=== PATIENT | male | born 2000 | race Caucasian/White ===

== ENCOUNTER 2023-01-22 11:11 | Emergency (ER) | payer OTHER ==
[~2023-01-22] VITALS: Ht 193 cm; Wt 86.8 kg
[2023-01-22] MEDS ORDERED: DIPH50CA29 PO (11:45)
[2023-01-22] MEDS ORDERED: FAMOTIDINE 20MG/2ML VIAL IVP ONE (13:15)
[2023-01-22] MEDS ORDERED: diphenhydrAMINE 50MG/ML VIAL IV ONE (13:15)
[2023-01-22] MEDS ORDERED: NS 1,000 ML IV ONE (13:15)
[2023-01-22] MEDS ORDERED: methylPREDNISolone 125MG 2ML VIAL IV ONE (13:15)
[2023-01-22 13:48] LABS: BASO % 0.3 % (0.0-1.0); EOS # 0.5 10^3/uL (0.0-0.5); HEMATOCRIT 47.2 % (42.0-52.0); HEMOGLOBIN 15.5 g/dl (13.5-17.5); LYMPH # 1.5 10^3/uL (1.5-5.0); LYMPH % 23.1 % (24.0-44.0); MEAN CORPUSCULAR HEMOGLOBIN 28.8 pg (27.0-33.0); MEAN CORPUSCULAR HGB CONC 32.8 g/dl (32.0-36.5); MEAN CORPUSCULAR VOLUME 87.7 fl (80.0-96.0); MONO # 0.7 10^3/uL (0.0-0.8); MONO % 10.5 % (2.0-8.0); NEUTROPHILS # 3.9 10^3/uL (1.5-8.5); NEUTROPHILS % 58.6 % (36.0-66.0); PLATELET COUNT, AUTOMATED 237 10^3/uL (150-450); RED BLOOD COUNT 5.38 10^6/uL (4.30-6.10); WHITE BLOOD COUNT 6.6 10^3/uL (4.0-10.0)
[2023-01-22 14:08] LABS: ERYTHROCYTE SEDIMENTATION RATE 35 mm/hr (0-15)
[2023-01-22 14:16] LABS: BLOOD UREA NITROGEN 19 MG/DL (9-23); CALCIUM LEVEL 9.1 MG/DL (8.5-10.1); CARBON DIOXIDE LEVEL 30 MMOL/L (20-31); CHLORIDE LEVEL 104 MMOL/L (98-107); CREATININE FOR GFR 1.19 MG/DL (0.70-1.30); GLUCOSE, FASTING 81 MG/DL (60-100); POTASSIUM SERUM 4.5 MMOL/L (3.5-5.1); SODIUM LEVEL 139 MMOL/L (136-145)
[2023-01-22] MEDS ORDERED: PRED20TA PO (14:28)
[2023-01-22] MEDS ORDERED: FAMO1TAB11 PO (14:28)
[2023-01-22] MEDS ORDERED: CETI-24 PO (14:30)
[2023-01-22 14:47] VITALS: BP 140/75; TEMP 98.5; O2SAT 98
== END 2023-01-22 15:01 | disposition home or self-care (01) ==
LOC: M ED 11:11
DX: L50.0 Allergic urticaria (principal); T88.7XXA Unspecified adverse effect of drug or medicament, initial encounter; Z88.1 Allergy status to other antibiotic agents; Z79.52 Long term (current) use of systemic steroids; Z79.899 Other long term (current) drug therapy
CPT/HCPCS: 80048; 85025; 85652; 86140; 96361; 96374; 99284; J1200; J2930; S0028

== ENCOUNTER 2024-01-16 01:31 | Emergency (ER) | payer OTHER ==
[~2024-01-16] VITALS: Ht 193 cm; Wt 86.5 kg
[~2024-01-16 01:31] MED LIST: CETI-24 PO; DIPH50CA29 PO; FAMO1TAB11 PO; PRED20TA PO
[2024-01-16 03:01] LABS: RSV AMPLIFICATION NEGATIVE (NEGATIVE)
[2024-01-16] MEDS: MAGIC MOUTHWASH 5ML ORAL SYRINGE SSP ONE (04:52)
[2024-01-16 05:00] VITALS: BP 127/80; TEMP 98; O2SAT 96
[2024-01-16] MEDS ORDERED: CLIN150C17 PO ×2 (05:01→11:19)
[2024-01-16] MEDS ORDERED: MAGICMW SSP ×2 (05:01→11:19)
[2024-01-16] MEDS: CLINDAMYCIN 150MG CAPSULE PO ONE (05:12)
== END 2024-01-16 05:14 | disposition home or self-care (01) ==
LOC: M ED 01:31
DX: J02.0 Streptococcal pharyngitis (principal); K21.9 Gastro-esophageal reflux disease without esophagitis; Z88.1 Allergy status to other antibiotic agents; Z79.52 Long term (current) use of systemic steroids; Z79.2 Long term (current) use of antibiotics; Z79.899 Other long term (current) drug therapy